=== PATIENT | female | born 1980 | race Hispanic/Latino ===

== ENCOUNTER 2024-12-18 13:15 | Emergency (ER) | payer BC ==
[~2024-12-18] VITALS: Ht 170.2 cm; Wt 107.0 kg
--- NOTE | 2024-12-18 13:30 | ERN ---
ED Note History of Present Illness Stated Complaint: COUGH Chief Complaint: Cough Time Seen by MD: 13:19 Dictation: PATIENT IS A 44-YEAR-OLD FEMALE HERE WITH COMPLAINTS OF FEVER CHILLS COUGH AND BODY ACHES FOR THE LAST 3-4 DAYS. NO NAUSEA VOMITING NO DIARRHEA. SHE STATES SHE HAS A HISTORY OF BREAST CA, HAS RECEIVING CHEMOTHERAPY FROM DR. JOYCE, LAST CHEMO WAS TUESDAY. STATES SHE SAW HIM THIS WEEK AND WAS TREATED WITH AND INFECTION WITH ANTIBIOTICS HOWEVER SHE STATES SHE IS NOT FEELING BETTER, DOES NOT KNOW WHAT THE NAME OF THE ANTIBIOTICS OR. Allergies: Coded Allergies: amoxicillin (Unverified Allergy, Unknown, 12/18/24) Past Medical History History: Not Applicable RN Note Reviewed/Agreed w/PFSH: Yes Review of System Dictation CONSTITUTIONAL: NEGATIVE EXCEPT FOR HPI FEVER CHILLS HEAD/FACE: NEGATIVE EXCEPT FOR HPI EENT: NEGATIVE EXCEPT FOR HPI RESPIRATORY: NEGATIVE EXCEPT FOR HPI COUGH GASTROINTESTINAL/ABDOMINAL: NEGATIVE EXCEPT FOR HPI GENITOURINARY: NEGATIVE EXCEPT FOR HPI MUSCULOSKELETAL: NEGATIVE EXCEPT FOR HPI INTEGUMENTARY: NEGATIVE EXCEPT FOR HPI NEUROLOGICAL/PSYCH: NEGATIVE EXCEPT FOR HPI HEMATOLOGIC/LYMPHATIC: NEGATIVE EXCEPT FOR HPI ALL SYSTEMS NEGATIVE, EXCEPT NOTED ABOVE. 13 POINT REVIEW OF SYSTEMS ASSESSED AND ALL NEGATIVE EXCEPT FOR ABOVE. Initial Vital Sign VS Vital Signs Date Time Temp Pulse Resp B/P (MAP) Pulse Ox O2 Delivery O2 Flow Rate FiO2 12/18/24 13:32 100.4 118 16 158/88 98 Room Air* 0 21 Physical Exam Dictation VITAL SIGNS REVIEWED GENERAL APPEARANCE: ALERT, ORIENTED X 3, MILD ACUTE DISTRESS, WELL DEVELOPED, NOURISHED. HEAD AND FACE: NON-TRAUMATIC. EYES: PERRL, PINK CONJUNCTIVAS, EYELID NO TRAUMA, ANTERIOR CHAMBER WITH ARCUS SENILIS. EARS: PINNAS INTACT AND NO SIGNS OF TRAUMA OR ERYTHEMA EAR CANALS CLEAR AND NO DISCHARGE TM NO ERYTHEMA NOSE: NO DISCHARGE, NO BLEEDING. OROPHARYNX: MOUTH NORMAL, TONGUE PINK, PHARYNX CLEAR,NO ERYTHEMA, TONSILS NO EXUDATES, NO ABSCESSES NOTED, MUCOUS ME MBRANE MOIST NECK: SUPPLE, NON-TENDER, NO THYROMEGALY, NO MASSES, NO JVD, NO BRUITS BREAST:DEFERRED RIGHT CHEST PORT-A-CATH CHEST:NO TENDERNESS, NO CREPITUS, NO PARADOXICAL MOVEMENT, NO RETRACTIONS LUNGS:CLEAR, WELL-VENTILATED, SYMMETRIC, NO RALES, NO WHEEZING, NO RHONCHI, NO STRIDOR, GOOD BREATH SOUNDS BILATERALLY HEART: REGULAR RATE, REGULAR RHYTHM, NO MURMUR, NO GALLOPS VASCULAR: NO PERIPHERAL EDEMA, ABDOMEN: SOFT, POSITIVE BOWEL SOUNDS, NONDISTENDED, NO GUARDING, NONTENDER, NO REBOUND, NO MASSES NO HEPATOMEGALY, NO SPLENOMEGALY, NO SWANSON'S SIGN, NO HERNIAS. RECTAL: DEFERRED GENITAL: DEFERRED NEUROLOGICAL: NORMAL SPEECH, MOTOR FUNCTION INTACT, SENSORY FUNCTION INTACT MUSCULOSKELETAL: NECK NONTENDER, FULL RANGE OF MOTION, BACK NONTENDER, FULL RANGE OF MOTION, EXTREMITIES: NONTENDER, FULL RANGE OF MOTION SKIN: COLOR PINK, DRY, NO TURGOR, NO RASH, NO LACERATIONS, NO ABRASIONS, NO CONTUSIONS. LYMPHATIC: DEFERRED Results (Laboratory/Radiology) Laboratory/Radiology Laboratory Tests Test 12/18/24 13:34 12/18/24 13:56 12/18/24 14:58 Influenza Type A Antigen Negative For Type A Influenza Type B Antigen Positive For Type B SARS-CoV-2 Antigen (Rapid) PRESUMPTIVE NEGATIVE Group A Streptococcus Rapid negative (NEGATIVE) White Blood Count 2.1 K/uL (4.8-10.8) L Red Blood Count 4.15 MIL/uL (4.00-5.50) Hemoglobin 11.4 g/dL (12.0-16.0) L Hematocrit 34.5 % (36-48) L Mean Corpuscular Volume 83.1 fL (79-99) Mean Corpuscular Hemoglobin 27.5 pg (27.0-33.0) Mean Corpuscular Hemoglobin Concent 33.0 g/dL (32.0-36.0) Red Cell Distribution Width 17.0 % (11.0-15.5) H Platelet Count 101 K/uL (130-400) L Mean Platelet Volume 8.9 fL (7.5-10.5) Immature Granulocyte % (Auto) 1.0 % (0-1) Neutrophils (%) (Auto) 49.2 % (40.0-77.0) Lymphocytes (%) (Auto) 44.0 % (21.0-51.0) Monocytes (%) (Auto) 4.3 % (3.0-13.0) Eosinophils (%) (Auto) 1.0 % (0.0-8.0) Basophils (%) (Auto) 0.5 % (0.0-5.0) Neutrophils # (Auto) 1.0 K/uL (1.8-7.7) L Lymphocytes # (Auto) 0.9 K/uL (1.0-4.8) L Monocytes # (Auto) 0.1 K/uL (0.1-1.0) Eosinophils # (Auto) 0.02 K/uL (0.00-0.70) Basophils # (Auto) 0.01 K/uL (0.00-0.20) Absolute Immature Granulocyte (auto 0.02 K/uL (0-1) Segmented Neutrophils % 44 % (40-70) Band Neutrophils % 9 % (0-2) H Lymphocytes % (Manual) 18 % (22-44) L Monocytes % (Manual) 2 % (2-9) Eosinophils % (Manual) 1 % (1-6) Nucleated Red Blood Cells 0.0 % (0.0-0.19) Differential Comment MANUAL DIFFERENTIAL Reactive Lymphocytes 26 % (0-0) H White Cell Morphology Comment lunchroom supervisor Platelet Morphology Comment See comments Red Blood Cell Morphology See comments Sodium Level 130 mmol/L (136-145) L Potassium Level 3.8 mmol/L (3.5-5.1) Chloride Level 97 mmol/L (101-111) L Carbon Dioxide Level 23 mmol/L (21-32) Blood Urea Nitrogen 7 mg/dL (7-18) Creatinine 0.8 mg/dL (0.5-1.0) Glomerular Filtration Rate Calc 94 mL/min (>90) Random Glucose 222 mg/dL (70-105) H Lactic Acid Level 2.5 mmol/L (0.8-2.5) Total Calcium 8.7 mg/dL (8.5-10.1) Urine Color YELLOW (YELLOW) Urine Appearance CLEAR (CLEAR) Urine pH 6.0 (5.0-8.0) Urine Specific [place] 1.022 (1.001-1.031) Urine Protein 70 mg/dL (NEGATIVE) H Urine Glucose (UA) 30 mg/dL (NEGATIVE) H Urine Ketones NEGATIVE mg/dL (NEGATIVE) Urine Occult Blood MODERATE (NEGATIVE) H Urine Nitrate NEGATIVE (NEGATIVE) Urine Bilirubin NEGATIVE mg/dL (NEGATIVE) Urine Urobilinogen 0.2 mg/dL (0.2-1.0) Urine Leukocyte Esterase 25 Clem/uL (NEGATIVE) H Urine RBC 51-100 /HPF (0-1) H Urine WBC 11-25 /HPF (0-1) H Urine Squamous Epithelial Cells RARE /HPF (0-2) Urine Bacteria None /HPF (None Seen) RTABLE CHEST RADIOGRAPH INDICATION: SOB/COUGH WITH FEVER COMPARISON: None FINDINGS: Right-sided Port-A-Cath in appropriate position. hall monitor leads overlie the field of view. Heart size is normal. The pulmonary vascularity and dee dee appear normal. No abnormal pulmonary parenchymal opacity or consolidation identified. No significant pleural effusion noted. No pneumothorax detected. IMPRESSION: No radiographic evidence for any acute cardiopulmonary process. Labs Reviewed?: Yes ED Course ED Course Orders Procedure Category Date Status Time Covid19 (Sars Antigen LAB 12/18/24 Complete Rapid) 13:25 Influenza Type A & B, LAB 12/18/24 Complete Rapid 13: Rapid (Group A Strep) LAB 12/18/24 Complete 13:25 Cbc With Differential LAB 12/18/24 In Process 13: Blood Cult GRISELDA 12/18/24 In Process 13:25 Urinalysis Profile LAB 12/18/24 Complete 13:25 Lactic Acid LAB 12/18/24 Complete 13:25 Chest 1vw RAD 12/18/24 Resulted 13:25 Basic Metabolic Panel LAB 12/18/24 Complete 13:25 Acetaminophen 500mg PHA 12/18/24 Complete Tab (Tylenol 500mg T 14:00 0.9%Nacl 1000ml (Ns PHA 12/18/24 Complete 1000ml) 14:00 0.9%Nacl 1000ml (Ns PHA 12/18/24 In Process 1000ml) 14:30 Levofloxacin 750 PHA 12/18/24 Complete Mg/D5w 150 Ml 14:30 Manual Differential LAB 12/18/24 In Process 13:56 Oseltamivir Phosphate PHA 12/18/24 Complete (Tamiflu) 15:00 Culture Urine GRISELDA 12/18/24 In Process 15:42 Current Medications Medications (Trade) Dose Ordered Sig/Kathryn Route PRN Reason Start Time Stop Time Status Last Admin Dose Admin Acetaminophen (TYLenol 500MG TAB) 1,000 mg ONCE ONCE PO 12/18/24 14:00 12/18/24 14:01 DC 12/18/24 14:20 Levofloxacin/ Dextrose (LEvaquIN 750 MG/ D5W 150 ML) 750 mg ONCE ONCE IV 12/18/24 14:30 12/18/24 14:33 DC 12/18/24 15:42 Oseltamivir Phosphate (Tamiflu) 75 mg ONCE ONCE PO 12/18/24 15:00 12/18/24 15:01 DC 12/18/24 15:45 Sodium Chloride 1,000 ml @ 0 mls/hr ONCE ONCE IV 12/18/24 14:00 12/18/24 14:01 DC 12/18/24 14:22 Sodium Chloride 3,210 ml @ 1,070 mls/hr ONCE ONCE IV 12/18/24 14:30 12/18/24 17:29 12/18/24 15:42 Vital Signs Date Time Temp Pulse Resp B/P (MAP) Pulse Ox O2 Delivery O2 Flow Rate FiO2 12/18/24 14:20 99.9 12/18/24 13:43 99.9 116 33 157/97 95 Room Air* 0 21 12/18/24 13:32 100.4 118 16 158/88 98 Room Air 0 12/18/24 13:32 100.4 118 16 158/88 98 Room Air* 0 21 1408/PATIENT HAS A LACTIC ACID 2.5 WITH TACHYCARDIA AND FEVER. SHE HAS IMMUNO COMPROMISE DUE TO BREAST CA AND CHEMOTHERAPY ANTICIPATE ADMISSION PATIENT TO THE HOSPITAL WE WILL INITIATE SEPTIC PROTOCOL TO INCLUDE 30 PER KILOS FLUIDS AND BROAD- SPECTRUM [id number]/ SPOKE WITH PATIENT AT LENGTH REGARDING HER LAB FINDINGS SHE DOES NOT WISH TO BE ADMITTED TO THE HOSPITAL WANTS TO BE DISCHARGED HOME AFTER FLUIDS LEVAQUIN/TAMIFLU. SHE STATES SHE WILL FOLLOW UP WITH HER PRIMARY CARE DOCTOR I EXPLAINED TO HER THE REASON FOR THE ADMISSION AGAIN SHE AND HER BOTH SO THEY WOULD LIKE TO GO HOME.1630/ 1630/PATIENT HEMODYNAMICALLY STABLE/HEART RATE 95 AGAIN SHE STATES SHE DOES NOT WANT TO BE IN THE HOSPITAL AND WE WILL BE DISCHARGED HOME WE WILL GIVEN FLUID I DURATION INSTRUCTIONS TAMIFLU WAS INITIATED SHE SAID SHE WILL FOLLOW UP WITH HER ONCOLOGY Medical Decision Making MDM MDM: DIFFERENTIAL DIAGNOSIS: SARS/INFLUENZA/STREP/PNEUMONIA/BRONCHITIS/ELECTROLYTE IMBALANCE/DEHYDRATION/UTI RATIONALE: TESTS CONSIDERED AND ORDERED SECONDARY TO SHARED DECISION MAKING INCLUDE: RADIOLOGY/LABS PREVIOUS OUTSIDE RECORDS REVIEWED: OLD ER VISITS. RISK OF COMPLICATION AND/OR MORBIDITY OR MORTALITY OF PATIENT MANAGEMENT: NONE MEDICATIONS-PER MEDICATION RECONCILIATION NEED FOR HOSPITALIZATION: PATIENT DOES NOT MEET CRITERIA FOR HOSPITALIZATION. PATIENT REFUSED HOSPITALIZATION AT THIS TIME. STATES SHE WILL FOLLOW UP WITH HER DOCTOR HOWEVER WANTS TO GO HOME WITH HER . NEED FOR EMERGENCY MAJOR/MINOR SURGERY: NO THERE ARE NO SOCIAL CONCERNS WITH THIS PATIENT. PRESCRIPTION DRUG MANAGEMENT TAMIFLU/TESSALON PRESCRIPTIONS WILL INCLUDE SYMPTOMATIC CARE PATIENT'S PRIOR EXTERNAL MEDICAL RECORDS FROM OTHER ER VISITS WERE REVIEWED BY ME INDICATED. PRIOR TESTING AND RESULTS FROM PREVIOUS VISITS WERE REVIEWED. PRIOR TESTS WERE TAKEN INTO ACCOUNT WITH MEDICAL DECISION MAKING AND RESOURCE UTILIZATION, INDEPENDENT HISTORIAN/HISTORIANS WERE USED TO OBTAIN COMPLETE MEDICAL HISTORY. I INDEPENDENTLY INTERPRETED THE TEST THAT WERE PERFORMED, RESULTS WERE REVIEWED BY ME AND CONSIDERED FINDINGS ON RADIOLOGY IF ORDERED. MEDICAL MANAGEMENT AND EXAMINATION INTERPRETATION DISCUSSIONS WERE HAD BY ME WITH OTHER QUALIFIED HEALTHCARE PROFESSIONALS INDICATED FOR THE PATIENT'S CARE. DX & DISP Disposition: Discharge Departure Impression: Primary Impression: Influenza B Additional Impressions: Cough, Pancytopenia, Lactic acidosis, Hyponatremia, Diabetes mellitus with hyperglycemia Condition: Stable Scripts Benzonatate (Tessalon Perles) 100 Mg Cap 2 CAP PO TID for cough for 10 Days, #30 CAP 0 Refills Prov: BARI MARIE THERMOSCREW OPERATOR 12/18/24 Oseltamivir Phosphate (Tamiflu) 75 Mg Cap 75 MG PO BID for 5 Days, #10 CAP Prov: BARI MARIE THERMOSCREW OPERATOR 12/18/24 Additional Instructions: Follow-up with primary care provider in 1 to 2 days. Take medications as directed here in the emergency room. Okay to continue home medications unless otherwise discussed during your visit in the emergency room today. Return to your nearest emergency room if symptoms worsen or if there is no improvement. Call 911 if you need immediate assistance. Take Tylenol or Motrin over-the- counter as needed and if no contraindications are present. Increase oral hydration. A wound culture or urine culture was ordered here in the emergency room department please follow-up with primary care provider and advise them to get repeat ports from our facility. If you had any Dominick wrap/splints that were applied here, please do not remove them until you see your primary care or specialty. Take Tamiflu as directed until gone. Take Tessalon as directed for cough. Follow up with your primary care doctor in the next 1-2 days and increase your fluids intake. Time of Disposition: 16:32 I have reviewed the case, and I agree with, Diagnosis and Plan BARI MARIE NP Dec 18, 2024 13:30
[2024-12-18 14:01] LABS: COVID19 (SARS ANTIGEN RAPID) PRESUMPTIVE NEGATIVE (NEGATIVE); INFLUENZA TYPE A Negative For Type A (NEGATIVE)
[2024-12-18 14:05] LABS: BASOPHILS # (AUTO) 0.01 K/uL (0.00-0.20); BASOPHILS % (AUTO) 0.5 % (0.0-5.0); EOSINOPHILS # (AUTO) 0.02 K/uL (0.00-0.70); HEMATOCRIT 34.5 % (36-48); IMMATURE GRANULOCYTE ABSOLUTE 0.02 K/uL (0-1); LYMPHOCYTES # (AUTO) 0.9 K/uL (1.0-4.8); MEAN CORPUSCULAR HEMOGLOBIN 27.5 pg (27.0-33.0); MEAN CORPUSCULAR VOLUME 83.1 fL (79-99); MONOCYTES # (AUTO) 0.1 K/uL (0.1-1.0); MONOCYTES % (AUTO) 4.3 % (3.0-13.0); NEUTROPHILS % (AUTO) 49.2 % (40.0-77.0); PLATELET COUNT (AUTO) 101 K/uL (130-400); RED BLOOD CELL COUNT(AUTO) 4.15 MIL/uL (4.00-5.50); WHITE BLOOD COUNT (AUTO) 2.1 K/uL (4.8-10.8)
[2024-12-18 14:15] LABS: CREATININE 0.8 mg/dL (0.5-1.0); POTASSIUM 3.8 mmol/L (3.5-5.1)
[2024-12-18] MEDS: acetaMINOPHEN 500 MG TABLET PO ONE (14:20)
--- NOTE | 2024-12-18 14:20 | HMCIMG ---
PORTABLE CHEST RADIOGRAPH INDICATION: SOB/COUGH WITH FEVER COMPARISON: None FINDINGS: Right-sided Port-A-Cath in appropriate position. fur dry cleaner leads overlie the field of view. Heart size is normal. The pulmonary vascularity and dee dee appear normal. No abnormal pulmonary parenchymal opacity or consolidation identified. No significant pleural effusion noted. No pneumothorax detected. IMPRESSION: No radiographic evidence for any acute cardiopulmonary process.
[2024-12-18] MEDS: 0.9%NACL 1000ML 1,000 ML IV ONE (14:22)
[2024-12-18 14:37] LABS: INFLUENZA TYPE B Positive For Type B (NEGATIVE)
[2024-12-18 15:19] LABS: RAPID GROUP A STREP negative (NEGATIVE)
[2024-12-18 15:20] VITALS: TEMP 99
[2024-12-18 15:33] LABS: APPEARANCE,URINE CLEAR (CLEAR); BILIRUBIN,URINE NEGATIVE (NEGATIVE); COLOR,URINE YELLOW (YELLOW); GLUCOSE, URINE (UA) 30 mg/dL (NEGATIVE); KETONES,URINE NEGATIVE (NEGATIVE); LEUKOCYTE ESTERASE ,URINE 25 Leu/uL (NEGATIVE); NITRATE,URINE NEGATIVE (NEGATIVE); OCCULT BLOOD,URINE MODERATE (NEGATIVE); PROTEIN,URINE 70 mg/dL (NEGATIVE); UROBILINOGEN,URINE 0.2 mg/dL (0.2-1.0)
[2024-12-18 15:36] LABS: ADD UA MICROSCOPIC YES
[2024-12-18 15:41] LABS: MUCUS,URINE RARE LPF (None Seen); RBC,URINE 51-100 /HPF (0-1); SQUAMOUS EPITHELIAL CELL,UR RARE /HPF (0-2)
[2024-12-18] MEDS: 0.9%NACL 1000ML 3,210 ML IV ONE (15:42)
[2024-12-18] MEDS: levoFLOXacin 750 MG/D5W 150ML BAG IV ONE (15:42)
[2024-12-18] MEDS: OSELTAMIVIR PHOSPHATE 75 MG CAP PO ONE (15:45)
[2024-12-18 16:22] LABS: BAND NEUTROPHILS % (MANUAL) 9 % (0-2); EOSINOPHILS % (MANUAL) 1 % (1-6); LYMPHOCYTES % (MANUAL) 18 % (22-44); MAN.DIFF COMMENT-IMPRESSION MANUAL DIFFERENTIAL; MONOCYTES % (MANUAL) 2 % (2-9); REACTIVE LYMPHOCYTES 26 % (0-0); SEGMENTED NEUTROPHILS % 44 % (40-70); TOTAL CELLS COUNTED 100
[2024-12-18] MEDS ORDERED: BENZ-39 PO (16:35)
[2024-12-18] MEDS ORDERED: OSEL75 PO (16:35)
[2024-12-18 18:07] VITALS: BP 120/78; PULSE 95; RESP 18; TEMP 98.6; O2SAT 96
== END 2024-12-18 18:14 | disposition home or self-care (01) ==
LOC: EDH 13:15
DX: J10.1 Influenza due to other identified influenza virus with other respiratory manifestations (principal); R05.9 Cough, unspecified; D61.818 Other pancytopenia; E87.20 Acidosis, unspecified; E11.65 Type 2 diabetes mellitus with hyperglycemia; E87.1 Hypo-osmolality and hyponatremia; Z88.0 Allergy status to penicillin; Z20.822 Contact with and (suspected) exposure to COVID-19
CPT/HCPCS: 99284; 96365; 71045; 96361; 87426; 80048; 85025; 87040 ×2; 87086; 87880; 87804 ×2; 83605 ×2; 81001; 36415; J1956; J7030 ×2

== ENCOUNTER 2025-02-23 03:07 | Emergency (ER) | payer BC ==
[~2025-02-23] VITALS: Ht 167.6 cm; Wt 105.7 kg
[~2025-02-23 03:07] MED LIST: BENZ-39 PO; OSEL75 PO
[2025-02-23] MEDS: LACTATED RINGERS 1000ML IV STA (03:31)
[2025-02-23] MEDS: acetaMINOPHEN 500 MG TABLET PO ONE (03:31)
[2025-02-23] MEDS: ondanSETRON 4MG INJ IVP ONE ×2 (03:31→05:11)
--- NOTE | 2025-02-23 03:34 | ERN ---
General Chief Complaint: Multiple Complaints Stated Complaint: N/V/, ABD PAIN, FEVER Time Seen by MD: 03:15 Source: patient History of Present Illness Initial Comments Patient is a 44-year-old female who says she has a symptoms of an upper respiratory tract infection. She relates it to a pool republic[place] she went to two days ago where she jumped in the water and ran around in wet clothing for a little while. In addition to the sore throat and fever she has abdominal pain and nausea and vomiting. Timing/Duration: 24 hours Allergies: Coded Allergies: amoxicillin (Unverified Allergy, Unknown, 12/18/24) Home Meds Active Scripts Benzonatate (Tessalon Perles) 100 Mg Cap, 2 CAP PO TID for cough for 10 Days, #30 CAP 0 Refills Prov:BARI MARIE NP 12/18/24 Oseltamivir Phosphate (Tamiflu) 75 Mg Cap, 75 MG PO BID for 5 Days, #10 CAP Prov:BARI MARIE SLEEPING ROOM CLEANER 12/18/24 Past Medical History Past Medical History: Cancer, Diabetes-Type II, Hypertension Medical History Other: BREAST CANCER - LEFT Past Surgical History: Female( History) History: Not Applicable : 4 Para: 4 Aborts: 0 Constitutional: (+) chills, (+) fever, (+) weakness Respiratory: (+) cough, (+) short of breath Cardiovascular: (-) chest pain, (-) edema, (-) palpitations, (-) syncope, (-) dyspnea on exertion, (-) other documentation Gastrointestinal/Abdominal: (+) nausea, (+) vomiting Genitourinary: (-) vaginal discharge, (-) vaginal bleeding, (-) dysuria, (-) frequency, (-) hematuria, (-) pain, (-) other documentation Musculoskeletal: (-) Neck pain, (-) back pain, (-) Flank Pain, (-) joint pain, (-) joint swelling, (-) muscle pain, (-) muscle stiffness, (-) gout, (-) other documentation Skin: (-) laceration, (-) contusion, (-) abrasion, (-) abscess, (-) rash, (-) change in color, (-) change in hair, (-) change in nails, (-) diaphoresis, (-) dryness, (-) other documentation Physical Exam General Appearance: (+) moderate distress Orientation: (+) alert, (+) oriented x 3 Head/Face Trauma: No Eye: bilateral eye normal inspection, bilateral eye PERRL, bilateral eye EOMI Ear, Nose, Throat: (+) hearing grossly normal, (+) normal ENT inspection Neck: (+) normal inspection, (+) supple Respiratory: (+) chest non-tender, (+) lungs clear, (+) well ventilated Heart: (+) tachycardia Vascular: (+) no edema, (+) normal peripheral pulse Gastrointestinal: (+) soft, (+) non-tender, (+) bowel sound present Results Laboratory and Microbiology Lab and Micro Result Laboratory Tests Test 02/23/25 03:41 02/23/25 04:28 White Blood Count 6.2 K/uL (4.8-10.8) Red Blood Count 3.49 MIL/uL (4.00-5.50) L Hemoglobin 10.1 g/dL (12.0-16.0) L Hematocrit 32.8 % (36-48) L Mean Corpuscular Volume 94.0 fL (79-99) Mean Corpuscular Hemoglobin 28.9 pg (27.0-33.0) Mean Corpuscular Hemoglobin Concent 30.8 g/dL (32.0-36.0) L Red Cell Distribution Width 21.1 % (11.0-15.5) H Platelet Count 177 K/uL (130-400) Mean Platelet Volume 8.7 fL (7.5-10.5) Immature Granulocyte % (Auto) 1.8 % (0-1) H Neutrophils (%) (Auto) 88.4 % (40.0-77.0) H Lymphocytes (%) (Auto) 4.0 % (21.0-51.0) L Monocytes (%) (Auto) 5.3 % (3.0-13.0) Eosinophils (%) (Auto) 0.2 % (0.0-8.0) Basophils (%) (Auto) 0.3 % (0.0-5.0) Neutrophils # (Auto) 5.5 K/uL (1.8-7.7) Lymphocytes # (Auto) 0.3 K/uL (1.0-4.8) L Monocytes # (Auto) 0.3 K/uL (0.1-1.0) Eosinophils # (Auto) 0.01 K/uL (0.00-0.70) Basophils # (Auto) 0.02 K/uL (0.00-0.20) Absolute Immature Granulocyte (auto 0.11 K/uL (0-1) Nucleated Red Blood Cells 0.8 % (0.0-0.19) H White Cell Morphology Comment CONSISTENT W/DIFF Red Blood Cell Morphology See comments Sodium Level 139 mmol/L (136-145) Potassium Level 3.8 mmol/L (3.5-5.1) Chloride Level 103 mmol/L (101-111) Carbon Dioxide Level 26 mmol/L (21-32) Blood Urea Nitrogen 5 mg/dL (7-18) L Creatinine 0.7 mg/dL (0.5-1.0) Glomerular Filtration Rate Calc 110 mL/min (>90) Random Glucose 160 mg/dL (70-105) H Total Calcium 8.6 mg/dL (8.5-10.1) Influenza Type A Antigen Negative For Type A Influenza Type B Antigen Negative For Type B SARS-CoV-2 Antigen (Rapid) PRESUMPTIVE NEGATIVE Group A Streptococcus Rapid negative (NEGATIVE) Urine Color LIGHT-YELLOW (YELLOW) Urine Appearance CLEAR (CLEAR) Urine pH 5.5 (5.0-8.0) Urine Specific [place] 1.012 (1.001-1.031) Urine Protein NEGATIVE mg/dL (NEGATIVE) Urine Glucose (UA) NEGATIVE mg/dL (NEGATIVE) Urine Ketones NEGATIVE mg/dL (NEGATIVE) Urine Occult Blood NEGATIVE (NEGATIVE) Urine Nitrate NEGATIVE (NEGATIVE) Urine Bilirubin NEGATIVE mg/dL (NEGATIVE) Urine Urobilinogen 0.2 mg/dL (0.2-1.0) Urine Leukocyte Esterase NEGATIVE Clem/uL Urine RBC 2-5 /HPF (0-1) H Urine WBC 6-10 /HPF (0-1) H Urine Squamous Epithelial Cells RARE /HPF (0-2) Urine Bacteria None /HPF (None Seen) Urine HCG, Qualitative NEGATIVE (NEGATIVE) MDM I will assume that the patient is correct with her self diagnosis. For clinical condition is very consistent with a flu infection. However gastroenteritis and also a urinary tract infection could also produce these symptoms I will order the standard labs as long as well as a UA a urine and bolused the patient a L of fluid. Patient's laboratory studies show no evidence of a urinary tract infection, the patient is not , the electrolytes are all normal and the only abnormal lab is a left shift in the neutrophils. I explained these results to the patient and she says she is feeling a little bit better and she can be discharged from the hospital. ED Course Orders Procedure Category Date Status Time Basic Metabolic Panel LAB 02/23/25 Complete 03:15 Cbc With Differential LAB 02/23/25 Complete 03:15 Covid19 (Sars Antigen LAB 02/23/25 Complete Rapid) 03:15 Influenza Type A & B, LAB 02/23/25 Complete Rapid 03:15 Rapid (Group A Strep) LAB 02/23/25 Complete 03:15 Urinalysis LAB 02/23/25 Complete W/Microscopic 03:15 ,Urine Test LAB 02/23/25 Complete 03:15 Lactated Ringers PHA 02/23/25 Complete 1000ml (Lactated 03:15 Acetaminophen 500mg PHA 02/23/25 Complete Tab (Tylenol 500mg T 03:30 Ondansetron 4mg Inj PHA 02/23/25 Complete (Zofran 4mg Inj) 03:30 Culture Urine GRISELDA 02/23/25 In Process 04:49 Current Medications Medications (Trade) Dose Ordered Sig/Kathryn Route PRN Reason Start Time Stop Time Status Last Admin Dose Admin Acetaminophen (TYLenol 500MG TAB) 1,000 mg ONCE ONCE PO 02/23/25 03:30 02/23/25 03:31 DC 02/23/25 03:31 Lactated Ringer's (Lactated Ringers 1000ml) 1,000 ml BOLUS STAT IV 02/23/25 03:15 02/23/25 03:20 DC 02/23/25 03:31 Ondansetron HCl (zoFRAN 4MG INJ) 4 mg ONCE ONCE IVP 02/23/25 03:30 02/23/25 03:31 DC 02/23/25 03:31 Vital Signs Date Time Temp Pulse Resp B/P (MAP) Pulse Ox O2 Delivery O2 Flow Rate FiO2 02/23/25 03:55 107 19 153/89 96 Room Air* 0 21 02/23/25 03:45 109 19 167/101 96 Room Air* 0 21 02/23/25 03:31 100.6 02/23/25 03:08 100.6 119 20 171/104 98 Room Air DX & DISP Disposition: Discharge Departure Impression: Primary Impression: URTI (acute upper respiratory infection) Condition: Stable Scripts Ondansetron (Ondansetron Odt) 4 Mg Tab.rapdis 1 TAB PO Q6HPRN PRN for nausea/vomiting for 4 Days, #16 TAB 0 Refills Prov: ITZ DALLAS MD 02/23/25 Additional Instructions: Please return if there is worsening of your condition with high fevers increasing cough increasing sputum production and worsening nausea vomiting and diarrhea. Please return especially if you feel like your dehydrated. Referrals: SELF,REFERRAL (PCP) ITZ DALLAS MD Feb 23, 2025 03:34
[2025-02-23 03:53] LABS: BASOPHILS # (AUTO) 0.02 K/uL (0.00-0.20); BASOPHILS % (AUTO) 0.3 % (0.0-5.0); EOSINOPHILS # (AUTO) 0.01 K/uL (0.00-0.70); EOSINOPHILS % (AUTO) 0.2 % (0.0-8.0); HEMATOCRIT 32.8 % (36-48); IMMATURE GRANULOCYTE ABSOLUTE 0.11 K/uL (0-1); LYMPHOCYTES # (AUTO) 0.3 K/uL (1.0-4.8); MEAN CORPUSCULAR HEMOGLOBIN 28.9 pg (27.0-33.0); MEAN CORPUSCULAR HGB CONC 30.8 g/dL (32.0-36.0); MONOCYTES # (AUTO) 0.3 K/uL (0.1-1.0); MONOCYTES % (AUTO) 5.3 % (3.0-13.0); NEUTROPHILS # (AUTO) 5.5 K/uL (1.8-7.7); NEUTROPHILS % (AUTO) 88.4 % (40.0-77.0); NUCLEATED RED BLOOD CELLS 0.8 % (0.0-0.19); PLATELET COUNT (AUTO) 177 K/uL (130-400); RED BLOOD CELL COUNT(AUTO) 3.49 MIL/uL (4.00-5.50); RED CELL DISTRIBUTION WIDTH 21.1 % (11.0-15.5); WHITE BLOOD COUNT (AUTO) 6.2 K/uL (4.8-10.8)
[2025-02-23 04:00] LABS: CREATININE 0.7 mg/dL (0.5-1.0); POTASSIUM 3.8 mmol/L (3.5-5.1)
[2025-02-23 04:03] LABS: RAPID GROUP A STREP negative (NEGATIVE)
[2025-02-23 04:13] VITALS: TEMP 99
[2025-02-23 04:13] LABS: COVID19 (SARS ANTIGEN RAPID) PRESUMPTIVE NEGATIVE (NEGATIVE); INFLUENZA TYPE A Negative For Type A (NEGATIVE); INFLUENZA TYPE B Negative For Type B (NEGATIVE)
[2025-02-23 04:41] LABS: APPEARANCE,URINE CLEAR (CLEAR); BILIRUBIN,URINE NEGATIVE (NEGATIVE); COLOR,URINE LIGHT-YELLOW (YELLOW); GLUCOSE, URINE (UA) NEGATIVE (NEGATIVE); KETONES,URINE NEGATIVE (NEGATIVE); LEUKOCYTE ESTERASE ,URINE NEGATIVE Leu/uL (NEGATIVE); NITRATE,URINE NEGATIVE (NEGATIVE); OCCULT BLOOD,URINE NEGATIVE (NEGATIVE); PH,URINE 5.5 (5.0-8.0); PROTEIN,URINE NEGATIVE (NEGATIVE); UROBILINOGEN,URINE 0.2 mg/dL (0.2-1.0)
[2025-02-23 04:47] LABS: HCG,QUALITATIVE URINE NEGATIVE (NEGATIVE)
[2025-02-23 04:48] LABS: MUCUS,URINE RARE LPF (None Seen); SQUAMOUS EPITHELIAL CELL,UR RARE /HPF (0-2)
[2025-02-23 04:55] LABS: WBC MORPHOLOGY CONSISTENT W/DIFF
[2025-02-23] MEDS ORDERED: ONDA-243 PO (05:04)
[2025-02-23 05:07] VITALS: BP 154/83; PULSE 100; RESP 19; TEMP 99; O2SAT 97
== END 2025-02-23 05:18 | disposition home or self-care (01) ==
LOC: EDH 03:07
DX: J06.9 Acute upper respiratory infection, unspecified (principal); E11.9 Type 2 diabetes mellitus without complications; I10 Essential (primary) hypertension; Z20.822 Contact with and (suspected) exposure to COVID-19; Z88.0 Allergy status to penicillin; Z85.3 Personal history of malignant neoplasm of breast
CPT/HCPCS: 99284; 96374; 87426; 80048; 85025; 87086; 87880; 87804 ×2; 81001; 81025; 36415; 96376; J7120; J2405 ×2

== ENCOUNTER 2025-03-08 12:06 | Emergency (ER) | payer BC ==
[~2025-03-08] VITALS: Ht 167.6 cm; Wt 102.5 kg
[~2025-03-08 12:06] MED LIST changes: +ONDA-243 PO
--- NOTE | 2025-03-08 12:18 | ERN ---
ED Note History of Present Illness Stated Complaint: FEVER, ABD PAIN Chief Complaint: Fever Time Seen by MD: 12:09 Dictation: PATIENT IS A 44-YEAR-OLD FEMALE COMING IN TODAY WITH NAUSEA VOMITING WITH FEVER FOR THE LAST THREE DAYS. SHE IS ALSO COMPLAINING OF PERIUMBILICAL AND RIGHT LOWER QUADRANT PAIN TENDERNESS. NO CHANGE IN URINATION NO COUGH. SHE STATES SHE DOES HAVE A HISTORY OF LEFT BREAST CANCER IN HIS RECEIVING CARE CHEMOTHERAPY, LAST CHEMO WAS LAST WEEK BY . Allergies: Coded Allergies: amoxicillin (Unverified Allergy, Unknown, 12/18/24) Home Meds Active Scripts Ondansetron (Ondansetron Odt) 4 Mg Tab.rapdis, 1 TAB PO Q6HPRN PRN for nausea/vomiting for 4 Days, #16 TAB 0 Refills Prov:ITZ DALLAS MD 02/23/25 Benzonatate (Tessalon Perles) 100 Mg Cap, 2 CAP PO TID for cough for 10 Days, #30 CAP 0 Refills Prov:BARI MARIE LEAD WEB APPLICATION DEVELOPER 12/18/24 Oseltamivir Phosphate (Tamiflu) 75 Mg Cap, 75 MG PO BID for 5 Days, #10 CAP Prov:BARI MARIE LEAD WEB APPLICATION DEVELOPER 12/18/24 Past Medical History Past Medical History: Cancer, Diabetes-Type II, Hypertension Additional Past Medical Hx: BREAST CANCER - LEFT Surgical History: History: Not Applicable LMP: Aug 19, 2024 : 4 Para: 4 Aborts: 0 RN Note Reviewed/Agreed w/PFSH: Yes Review of System Dictation CONSTITUTIONAL: NEGATIVE EXCEPT FOR HPI FEVER CHILLS HEAD/FACE: NEGATIVE EXCEPT FOR HPI EENT: NEGATIVE EXCEPT FOR HPI RESPIRATORY: NEGATIVE EXCEPT FOR HPI GASTROINTESTINAL/ABDOMINAL: NEGATIVE EXCEPT FOR HPI RIGHT LOWER QUADRANT PAIN WITH NAUSEA VOMITING GENITOURINARY: NEGATIVE EXCEPT FOR HPI MUSCULOSKELETAL: NEGATIVE EXCEPT FOR HPI INTEGUMENTARY: NEGATIVE EXCEPT FOR HPI NEUROLOGICAL/PSYCH: NEGATIVE EXCEPT FOR HPI HEMATOLOGIC/LYMPHATIC: NEGATIVE EXCEPT FOR HPI ALL SYSTEMS NEGATIVE, EXCEPT NOTED ABOVE. 13 POINT REVIEW OF SYSTEMS ASSESSED AND ALL NEGATIVE EXCEPT FOR ABOVE. Initial Vital Sign VS Vital Signs Date Time Temp Pulse Resp B/P (MAP) Pulse Ox O2 Delivery O2 Flow Rate FiO2 03/08/25 12:08 99.7 117 20 127/77 99 Room Air 0 Physical Exam Dictation VITAL SIGNS REVIEWED GENERAL APPEARANCE: ALERT, ORIENTED X 3, MODERATE ACUTE DISTRESS, WELL DEVELOPED, NOURISHED. OBESE HEAD AND FACE: NON-TRAUMATIC. EYES: PERRL, PINK CONJUNCTIVAS, EYELID NO TRAUMA, ANTERIOR CHAMBER WITH ARCUS SENILIS. EARS: PINNAS INTACT AND NO SIGNS OF TRAUMA OR ERYTHEMA EAR CANALS CLEAR AND NO DISCHARGE TM NO ERYTHEMA NOSE: NO DISCHARGE, NO BLEEDING. OROPHARYNX: MOUTH NORMAL, TONGUE PINK, PHARYNX CLEAR,NO ERYTHEMA, TONSILS NO EXUDATES, NO ABSCESSES NOTED, MUCOUS MEMBRANE MOIST NECK: SUPPLE, NON-TENDER, NO THYROMEGALY, NO MASSES, NO JVD, NO BRUITS BREAST:DEFERRED CHEST:NO TENDERNESS, NO CREPITUS, NO PARADOXICAL MOVEMENT, NO RETRACTIONS LUNGS:CLEAR, WELL-VENTILATED, SYMMETRIC, NO RALES, NO WHEEZING, NO RHONCHI, NO STRIDOR, GOOD BREATH SOUNDS BILATERALLY HEART: REGULAR RATE, REGULAR RHYTHM, NO MURMUR, NO GALLOPS VASCULAR: NO PERIPHERAL EDEMA, ABDOMEN: SOFT, POSITIVE BOWEL SOUNDS, NONDISTENDED, NO GUARDING, DIFFUSE MIDLINE SUPRAPUBIC AND RIGHT LOWER QUADRANT TENDERNESS. NO REBOUND, NO MASSES NO HEPATOMEGALY, NO SPLENOMEGALY, NO SWANSON'S SIGN, NO HERNIAS. NEGATIVE REBOUND NO GUARDING RECTAL: DEFERRED GENITAL: DEFERRED NEUROLOGICAL: NORMAL SPEECH, MOTOR FUNCTION INTACT, SENSORY FUNCTION INTACT MUSCULOSKELETAL: NECK NONTENDER, FULL RANGE OF MOTION, BACK NONTENDER, FULL RANGE OF MOTION, EXTREMITIES: NONTENDER, FULL RANGE OF MOTION SKIN: COLOR PINK, DRY, NO TURGOR, NO RASH, NO LACERATIONS, NO ABRASIONS, NO CONTUSIONS. LYMPHATIC: DEFERRED Results (Laboratory/Radiology) Laboratory/Radiology Laboratory Tests Test 03/08/25 12:38 03/08/25 13:02 03/08/25 14:08 White Blood Count 0.5 K/uL (4.8-10.8) *L Red Blood Count 2.68 MIL/uL (4.00-5.50) L Hemoglobin 7.9 g/dL (12.0-16.0) L Hematocrit 23.7 % (36-48) L Mean Corpuscular Volume 88.4 fL (79-99) Mean Corpuscular Hemoglobin 29.5 pg (27.0-33.0) Mean Corpuscular Hemoglobin Concent 33.3 g/dL (32.0-36.0) Red Cell Distribution Width 17.2 % (11.0-15.5) H Platelet Count 43 K/uL (130-400) L Mean Platelet Volume 11.9 fL (7.5-10.5) H Immature Granulocyte % (Auto) 0.0 % (0-1) Neutrophils (%) (Auto) 26.5 % (40.0-77.0) L Lymphocytes (%) (Auto) 42.9 % (21.0-51.0) Monocytes (%) (Auto) 28.6 % (3.0-13.0) H Eosinophils (%) (Auto) 2.0 % (0.0-8.0) Basophils (%) (Auto) 0.0 % (0.0-5.0) Neutrophils # (Auto) 0.1 K/uL (1.8-7.7) L Lymphocytes # (Auto) 0.2 K/uL (1.0-4.8) L Monocytes # (Auto) 0.1 K/uL (0.1-1.0) Eosinophils # (Auto) 0.01 K/uL (0.00-0.70) Basophils # (Auto) 0.00 K/uL (0.00-0.20) Absolute Immature Granulocyte (auto 0.00 K/uL (0-1) Segmented Neutrophils % 16 % (40-70) L Band Neutrophils % 4 % (0-2) H Lymphocytes % (Manual) 52 % (22-44) H Monocytes % (Manual) 24 % (2-9) H Eosinophils % (Manual) 4 % (1-6) Nucleated Red Blood Cells 0.0 % (0.0-0.19) Differential Comment MANUAL DIFFERENTIAL White Cell Morphology Comment Platelet Morphology Comment MARKED DECREASE Red Blood Cell Morphology ANISO 1+ Sodium Level 139 mmol/L (136-145) Potassium Level 3.8 mmol/L (3.5-5.1) Chloride Level 103 mmol/L (101-111) Carbon Dioxide Level 25 mmol/L (21-32) Blood Urea Nitrogen 6 mg/dL (7-18) L Creatinine 0.5 mg/dL (0.5-1.0) Glomerular Filtration Rate Calc 119 mL/min (>90) Random Glucose 141 mg/dL (70-105) H Total Calcium 9.0 mg/dL (8.5-10.1) Lipase 19 U/L (16-77) Influenza Type A Antigen Negative For Type A Influenza Type B Antigen Negative For Type B SARS-CoV-2 Antigen (Rapid) PRESUMPTIVE NEGATIVE Group A Streptococcus Rapid negative (NEGATIVE) Urine Color LIGHT-YELLOW (YELLOW) Urine Appearance CLEAR (CLEAR) Urine pH 6.5 (5.0-8.0) Urine Specific [place] 1.011 (1.001-1.031) Urine Protein NEGATIVE mg/dL (NEGATIVE) Urine Glucose (UA) NEGATIVE mg/dL (NEGATIVE) Urine Ketones NEGATIVE mg/dL (NEGATIVE) Urine Occult Blood NEGATIVE (NEGATIVE) Urine Nitrate NEGATIVE (NEGATIVE) Urine Bilirubin NEGATIVE mg/dL (NEGATIVE) Urine Urobilinogen 0.2 mg/dL (0.2-1.0) Urine Leukocyte Esterase NEGATIVE Clem/uL Urine HCG, Qualitative NEGATIVE (NEGATIVE) 1450/CHEST X-RAY CLEAR Labs Reviewed?: Yes ED Course ED Course Orders Procedure Category Date Status Time Covid19 (Sars Antigen LAB 03/08/25 Complete Rapid) 12:10 Influenza Type A & B, LAB 03/08/25 Complete Rapid 12:10 Rapid (Group A Strep) LAB 03/08/25 Complete 12:10 ,Urine Test LAB 03/08/25 Complete 12:10 Urinalysis Profile LAB 03/08/25 Complete 12:10 0.9%Nacl 1000ml (Ns PHA 03/08/25 Complete 1000ml) 12:30 Ondansetron 4mg Inj PHA 03/08/25 Complete (Zofran 4mg Inj) 12:30 Chest 1vw RAD 03/08/25 Taken 12:10 Acetaminophen 500mg PHA 03/08/25 Complete Tab (Tylenol 500mg T 12:30 Morphine 2mg Syg PHA 03/08/25 Complete (Morphine 2mg Syg) 12:30 Cbc With Differential LAB 03/08/25 Complete 12:38 Basic Metabolic Panel LAB 03/08/25 Complete 12:38 Lipase LAB 03/08/25 Complete 12:38 Manual Differential LAB 03/08/25 Complete 12:38 Levofloxacin 500mg PHA 03/08/25 Transmitted Tab (Levaquin 500mg T 15:18 Current Medications Medications (Trade) Dose Ordered Sig/Kathryn Route PRN Reason Start Time Stop Time Status Last Admin Dose Admin Acetaminophen (TYLenol 500MG TAB) 1,000 mg ONCE ONCE PO 03/08/25 12:30 03/08/25 12:31 DC 03/08/25 13:05 Morphine Sulfate (morPHINE 2MG SYG) 2 mg ONCE ONCE IVP 03/08/25 12:30 03/08/25 12:31 DC Ondansetron HCl (zoFRAN 4MG INJ) 4 mg ONCE ONCE IVP 03/08/25 12:30 03/08/25 12:31 DC 03/08/25 13:04 Sodium Chloride 1,000 ml @ 0 mls/hr ONCE ONCE IV 03/08/25 12:30 03/08/25 12:31 DC 03/08/25 13:05 Vital Signs Date Time Temp Pulse Resp B/P (MAP) Pulse Ox O2 Delivery O2 Flow Rate FiO2 03/08/25 13:05 99.5 03/08/25 12:08 99.7 117 20 127/77 99 Room Air 0 1520/SPOKE WITH PATIENT AND AT LENGTH REGARDING MY CLINICAL FINDINGS. SHE IS AWARE THAT SHE HAS A NEUTROPENIC FEVER WITHOUT ANY KNOWN SOURCE OF SEPSIS. SHE IS CURRENTLY TAKING CIPRO THAT SHE HAD LEFTOVER FROM DR. DIMAS FROM MY PRIOR INFECTION. I EXPLAINED TO HER THAT SHE WAS EXTREMELY HIGH-RISK DUE TO HER NEUTROPENIC STATE CHEMOTHERAPY AN UNKNOWN SOURCE OF INFECTION. SHE STATES SHE DOES NOT WANT TO STAY IN THE HOSPITAL WAS AT THE BEDSIDE AND HE AGREED HE WOULD TAKE HER HOME. AGAIN I STRONGLY SUGGESTED SHE STAY IN THE HOSPITAL FOR NEUTROPENIC FEVER WITHOUT SOURCE OF INFECTION AND SHE SAID SHE DID NOT WANT TO STATE. GIVE HER DOSE OF LEVAQUIN AND STRONGLY ADVISED HER AND HER TO COME BACK AT ANY TIME SHE FEELS WORSE. THEY BOTH AGREED. Medical Decision Making MDM MDM: DIFFERENTIAL DIAGNOSIS: FEVER/CHILLS/COVID/FLU/STREP/PNEUMONIA/BRONCHITIS/UTI/SEPSIS/NEUTROPENIA RATIONALE: TESTS CONSIDERED AND ORDERED SECONDARY TO SHARED DECISION MAKING INCLUDE: LABS/RADIOLOGY PREVIOUS OUTSIDE RECORDS REVIEWED: OLD ER VISITS. RISK OF COMPLICATION AND/OR MORBIDITY OR MORTALITY OF PATIENT MANAGEMENT: NONE MEDICATIONS-PER MEDICATION RECONCILIATION NEED FOR HOSPITALIZATION: PATIENT DOES NOT MEET CRITERIA FOR HOSPITALIZATION. PATIENT REFUSED, AT BEDSIDE AND AGREES WITH PATIENT DESPITE STEAM DISTRIBUTION SUPERVISOR C EFFORTS TO KEEP HER IN THE HOSPITAL. NEED FOR EMERGENCY MAJOR/MINOR SURGERY: NO THERE ARE NO SOCIAL CONCERNS WITH THIS PATIENT. PRESCRIPTION DRUG MANAGEMENT [place] PRESCRIPTIONS WILL INCLUDE SYMPTOMATIC CARE PATIENT'S PRIOR EXTERNAL MEDICAL RECORDS FROM OTHER ER VISITS WERE REVIEWED BY ME INDICATED. PRIOR TESTING AND RESULTS FROM PREVIOUS VISITS WERE REVIEWED. PRIOR TESTS WERE TAKEN INTO ACCOUNT WITH MEDICAL DECISION MAKING AND RESOURCE UTILIZATION, INDEPENDENT HISTORIAN/HISTORIANS WERE USED TO OBTAIN COMPLETE MEDICAL HISTORY. I INDEPENDENTLY INTERPRETED THE TEST THAT WERE PERFORMED, RESULTS WERE REVIEWED BY ME AND CONSIDERED FINDINGS ON RADIOLOGY IF ORDERED. MEDICAL MANAGEMENT AND EXAMINATION INTERPRETATION DISCUSSIONS WERE HAD BY ME WITH OTHER QUALIFIED HEALTHCARE PROFESSIONALS INDICATED FOR THE PATIENT'S CARE. DX & DISP Disposition: Discharge Departure Impression: Primary Impression: Fever and neutropenia Additional Impressions: Chronic anemia, Uncontrolled diabetes mellitus, Breast cancer Condition: Stable Scripts Levofloxacin (Levofloxacin) 500 Mg Tablet 1 TAB PO DAILY for 10 Days, #10 TAB 0 Refills Prov: BARI MARIE NP 03/08/25 Additional Instructions: FOLLOW-UP WITH PRIMARY CARE PROVIDER IN 1 TO 2 DAYS. TAKE MEDICATIONS DIRECTED HERE IN THE EMERGENCY ROOM. OKAY TO CONTINUE HOME MEDICATIONS UNLESS OTHERWISE DISCUSSED DURING YOUR VISIT IN THE EMERGENCY ROOM TODAY. RETURN TO YOUR NEAREST EMERGENCY ROOM IF SYMPTOMS WORSEN OR IF THERE IS NO IMPROVEMENT. CALL 911 IF YOU NEED IMMEDIATE ASSISTANCE. TAKE TYLENOL OR MOTRIN OVER-THE- COUNTER NEEDED AND IF NO CONTRAINDICATIONS ARE PRESENT. INCREASE ORAL HYDRATION. A WOUND CULTURE OR URINE CULTURE WAS ORDERED HERE IN THE EMERGENCY ROOM DEPARTMENT PLEASE FOLLOW-UP WITH PRIMARY CARE PROVIDER AND ADVISE THEM TO GET REPEAT PORTS FROM OUR FACILITY. IF YOU HAD ANY SANDRO WRAP/SPLINTS THAT WERE APPLIED HERE, PLEASE DO NOT REMOVE THEM UNTIL YOU SEE YOUR PRIMARY CARE OR SPECIALTY. TAKE ANTIBIOTICS DIRECTED UNTIL GONE STRONGLY ADVISED YOU TO RETURN TO THE EMERGENCY ROOM IMMEDIATELY IF ANY CONTINUED FEVERS NAUSEA VOMITING UNABLE TO KEEP FOOD OR FLUIDS DOWN. POLICE BE AWARE THAT YOUR AT HIGH-RISK DUE TO YOUR NEUTROPENIA, AND CHEMOTHERAPY. Referrals: ROSETTE LOVELACE (PCP) Time of Disposition: 15:22 I have reviewed the case, and I agree with, Diagnosis and Plan BARI MARIE NP Mar 08, 2025 12:18
[2025-03-08 12:49] LABS: IMMATURE GRANULOCYTE ABSOLUTE 0.00 K/uL (0-1); NUCLEATED RED BLOOD CELLS 0.0 % (0.0-0.19); PLATELET COUNT (AUTO) 43 K/uL (130-400); RED BLOOD CELL COUNT(AUTO) 2.68 MIL/uL (4.00-5.50); RED CELL DISTRIBUTION WIDTH 17.2 % (11.0-15.5)
[2025-03-08 12:52] LABS: WHITE BLOOD COUNT (AUTO) 0.5 K/uL (4.8-10.8)
[2025-03-08 13:02] LABS: CREATININE 0.5 mg/dL (0.5-1.0); GLOMERULAR FILTR. RATE CALC 119.0 mL/min (>90); GLUCOSE,RANDOM 141.0 mg/dL (70-105); SODIUM SERUM 139.0 mmol/L (136-145); UREA NITROGEN, BLOOD 6.0 mg/dL (7-18)
[2025-03-08 13:05] VITALS: TEMP 99.5
[2025-03-08] MEDS: 0.9%NACL 1000ML 1,000 ML IV ONE (13:05)
[2025-03-08 13:19] LABS: RAPID GROUP A STREP negative (NEGATIVE)
[2025-03-08 13:28] LABS: COVID19 (SARS ANTIGEN RAPID) PRESUMPTIVE NEGATIVE (NEGATIVE)
[2025-03-08 13:29] LABS: INFLUENZA TYPE A Negative For Type A (NEGATIVE); INFLUENZA TYPE B Negative For Type B (NEGATIVE)
[2025-03-08 13:34] LABS: BAND NEUTROPHILS % (MANUAL) 4 % (0-2); EOSINOPHILS % (MANUAL) 4 % (1-6); LYMPHOCYTES % (MANUAL) 52 % (22-44); MAN.DIFF COMMENT-IMPRESSION MANUAL DIFFERENTIAL; MONOCYTES % (MANUAL) 24 % (2-9); PLATELET MORPHOLOGY COMMENT MARKED DECREASE; SEGMENTED NEUTROPHILS % 16 % (40-70)
[2025-03-08 14:18] LABS: APPEARANCE,URINE CLEAR (CLEAR); GLUCOSE, URINE (UA) NEGATIVE (NEGATIVE); LEUKOCYTE ESTERASE ,URINE NEGATIVE Leu/uL (NEGATIVE); NITRATE,URINE NEGATIVE (NEGATIVE); OCCULT BLOOD,URINE NEGATIVE (NEGATIVE)
[2025-03-08 14:21] LABS: HCG,QUALITATIVE URINE NEGATIVE (NEGATIVE)
[2025-03-08 14:22] LABS: ADD UA MICROSCOPIC NO
[2025-03-08] MEDS ORDERED: LEVO-70 PO (15:23)
--- NOTE | 2025-03-08 15:38 | HMCIMG ---
EXAM: CR Chest, 1 View. CLINICAL HISTORY: OB/COUGH COMPARISON: Radiograph dated December 18, 2024 FINDINGS: Mediport catheter tip projects over the SVC. LUNGS: There is no mass, infiltrate, or acute pulmonary abnormality. PLEURAL SPACES: No pleural effusion or pneumothorax. MEDIASTINUM: The cardiomediastinal silhouette is within normal limits. BONES: No aggressive appearing osseous lesion seen. IMPRESSION: No acute cardiopulmonary pathology is evident. /[place]
[2025-03-08 15:40] VITALS: BP 112/66; PULSE 89; RESP 16; TEMP 99.5; O2SAT 98
== END 2025-03-08 15:49 | disposition home or self-care (01) ==
LOC: EDH 12:06
DX: D70.9 Neutropenia, unspecified (principal); R50.9 Fever, unspecified; D64.9 Anemia, unspecified; E11.65 Type 2 diabetes mellitus with hyperglycemia; I10 Essential (primary) hypertension; Z85.3 Personal history of malignant neoplasm of breast; Z88.0 Allergy status to penicillin; Z20.822 Contact with and (suspected) exposure to COVID-19
CPT/HCPCS: 99284; 96374; 71045; 96361; 87426; 80048; 83690; 85025; 87880; 87804 ×2; 81003; 81025; 36415; J7030; J2405; J2270